=== PATIENT | female | born 1985 | race Two or more races ===

== ENCOUNTER 2017-11-30 17:02 | Emergency (ER) | payer MEDICAID ==
[~2017-11-30] VITALS: Ht 162.6 cm; Wt 63.5 kg
[2017-11-30] MEDS ORDERED: NKM (17:18)
[2017-11-30 17:19] VITALS: BP 122/81
--- NOTE | 2017-11-30 17:36 | Emergency Room Report ---
History of Present Illness General Chief Complaint: Multiple Trauma/Fall Source: Patient Present Illness HPI 32-year-old female presents emergency department complaining of 7 out of 10 in severity muscle strain/tightness to upper back muscles times one day. Patient reports she fell the day prior and that's when her symptoms began. Patient reports symptoms are progressive. Patient does state however she was at work today when she had an acute cramp in the right upper back which she reports is was painful and 9 out of 10 in severity. Pt. states that during episode her arm spasmed. The patient reports some soreness to the lateral right ankle however she states she is ambulatory and the ankle is not of high concern to her at the moment. denies midline neck or back pain she denies hitting her head or loss of consciousness. Patient denies urinary retention, incontinence, saddle anesthesia or other paresthesias. Allergies: Coded Allergies: No Known Allergies (Unverified , 11/30/17) Patient History Past Medical History: see triage record Past Surgical History: none Pertinent Family History: none Now: No Immunizations: UTD Reviewed Nursing Documentation: PMH: Agreed; PSxH: Agreed Nursing Documentation-PMH Past Medical History: No History, Except For Review of Systems All Other Systems: negative except mentioned in HPI Physical Exam Vital Signs Date Time Temp Pulse Resp B/P (MAP) Pulse Ox O2 Delivery O2 Flow Rate FiO2 11/30/17 17:14 98.0 84 17 122/81 98 Room Air 98.1 Sp02 EP Interpretation: reviewed, normal General Appearance: no apparent distress, alert, GCS 15, non-toxic Head: normocephalic, atraumatic Eyes: bilateral eye normal inspection, bilateral eye PERRL ENT: hearing grossly normal, normal voice Neck: full range of motion, no meningismus, no bony tend Respiratory: lungs clear, normal breath sounds, speaking full sentences Cardiovascular #1: regular rate, rhythm, normal capillary refill Musculoskeletal: back normal, gait/station normal, normal range of motion, tender - TTP to the right Rhomboid, no midline ttp, no step-off or obvious deformity. FROM Neurologic: alert, oriented x3, responsive, motor strength/tone normal, sensory intact, speech normal, grossly normal Psychiatric: judgement/insight normal Skin: normal color, no rash, warm/dry, well hydrated Medical Decision Making PA Attestation Dr. Macias is my supervising physician whom pt. management has been discussed with. Diagnostic Impression: Primary Impression: Muscle spasm of back Additional Impression: Muscle spasm of right shoulder ER Course 32-year-old female presents emergency department complaining of 4 out of 10 in severity muscle strain/tightness to upper back muscles times one day. Patient reports she fell the day prior and that's when her symptoms began. Patient reports symptoms are progressive. Patient does state however she was at work today when she had an acute cramp in the right upper back which she reports is was painful and 10 out of 10 in severity. Pt. states that during not episode her arm was spasming. The patient reports some soreness to the lateral right ankle however she states she is ambulatory and the ankle is not of high concern to her at the moment. denies midline neck or back pain she denies hitting her head or loss of consciousness. Patient denies urinary retention, incontinence, saddle anesthesia or other paresthesias. Ddx considered but are not limited to Fracture, dislocation, contusion, epidural abscess, Sprain/Strain/Spasm Vital signs: are WNL, pt. is afebrile H&PE are most consistent with muscle spasm, ORDERS: none required at this time. ED INTERVENTIONS: none required at this time. -I do not identify an emergent condition at this time. With current presentation , pt. is stable for close outpatient follow up and conservative treatment. D/ w pt. to return promptly to ED with worsening or new symptoms.- Pt. verbalizes understanding and agreement with proposed treatment plan.proposed treatment plan. DISCHARGE: At this time pt. is stable for d/c to home. Will provide printed patient care instructions, and any necessary prescriptions. Care plan and follow up instructions have been discussed with the patient prior to discharge. Last Vital Signs Date Time Temp Pulse Resp B/P (MAP) Pulse Ox O2 Delivery O2 Flow Rate FiO2 11/30/17 17:19 98.1 17 122/81 98 Room Air 98.1 11/30/17 17:14 84 Disposition: HOME, SELF-CARE Condition: Stable Scripts Methocarbamol* (ROBAXIN-750*) 750 Mg Tablet 750 MG PO TID, #21 TAB 0 Refills Prov: Diana Kerns 11/30/17 Ibuprofen* (MOTRIN*) 600 Mg Tablet 600 MG ORAL THREE TIMES A DAY, #30 TAB 0 Refills Prov: Diana Kerns 11/30/17 Patient Instructions: Muscle Cramps and Spasms, [id number] Additional Instructions: Take medications as directed. Follow up with a Primary Care Provider in 3-5 days, even if your symptoms have resolved. --Please review list of primary care clinics, if you do not already have a primary care provider Return sooner to ED if new symptoms occur, or current symptoms become worse. Do not drink alcohol, drive, or operate heavy machinery while taking Robaxin as this may cause drowsiness. - Please note that this Emergency Department Report was dictated using [employer] roll rewinder technology software, occasionally this can lead to erroneous entry secondary to interpretation by the dictation equipment. Diana Kerns Nov 30, 2017 17:36
[2017-11-30] MEDS ORDERED: ROBAXIN-750750 MG PO (17:37)
[2017-11-30] MEDS ORDERED: IBUPROFEN600 MG ORAL (17:37)
[2017-11-30 17:45] VITALS: BP 122/81
== END 2017-11-30 17:45 | disposition home or self-care (01) ==
LOC: EMR 17:31
DX: M62.830 Muscle spasm of back (principal); M62.838 Other muscle spasm; M25.571 Pain in right ankle and joints of right foot; F17.200 Nicotine dependence, unspecified, uncomplicated; W19.XXXA Unspecified fall, initial encounter; Y92.69 Other specified industrial and construction area as the place of occurrence of the external cause
CPT/HCPCS: 99283